=== PATIENT | male | born 1950 | race Caucasian/White ===

== ENCOUNTER 2022-04-08 06:48 | Day surgery (SDC) | payer MEDICARE, MEDICAID ==
[2022-04-08] VITALS (20 sets, daily range): BP systolic 122–169; BP diastolic 61–95
[~2022-04-08] VITALS: Ht 177.8 cm; Wt 112.6 kg
[~2022-04-08 06:48] MED LIST: ALBU0.63 NEB; ALBU18HF2 INH; DOCUMENT DATE & TIME OF BETA-BLOCKER PO ONE; ENAL-79 PO; FLO0.4C PO; FLUT1AER INH; HYDR-3972 PO; NIFE30TA95 PO; OMEG-167 PO; OMEP40CA21 PO; OMNICEF PO; P-EP-21 PO; PRED10TA23 PO; PROP20TA6 PO; famotidine 20mg tablet PO ONE; oxymetazoline 15 ML nasal spray NS ONE; ringers solution, lacted 1,000 ML IV SCH; tranexamic acid inj. 1,000 MG in normal saline IV soln 100ML IV ONE
[2022-04-08] MEDS ORDERED: cocaine 4% topical solution 4ml bottle ONE (07:17)
[2022-04-08] MEDS ORDERED: methylPREDNISolone acetate 80mg/ml inj**IM only ONE (07:17)
[2022-04-08] MEDS ORDERED: tranexamic acid 100mg/ml inj. ONE (07:17)
[2022-04-08] MEDS ORDERED: LIDOCAINE 1%/EPI 1:100,000 inj. 10 ML multi-dose vial ONE (07:18)
[2022-04-08] MEDS ORDERED: mupirocin 2% ointment 22GM ONE (07:18)
[2022-04-08] MEDS ORDERED: oxymetazoline 15 ML nasal spray NS ONE (07:18)
[2022-04-08] MEDS ORDERED: fentaNYL/PF 50MCG/1 ML 2ML syringe ONE ×2 (10:47→12:38)
[2022-04-08] MEDS ORDERED: morphine 2 MG/ML inj. syringe IV PRN (11:30)
[2022-04-08] MEDS ORDERED: ondansetron/PF 4mg/2ml inj IV PRN (11:30)
[2022-04-08] MEDS ORDERED: ringers solution, lacted 1,000 ML IV SCH (11:30)
[2022-04-08] MEDS ORDERED: morphine 4 MG/ML inj SYRINge IV PRN (11:30)
[2022-04-08] MEDS ORDERED: hydrALAZINE 20mg/ml inj. IV PRN (11:30)
[2022-04-08] MEDS ORDERED: HYDROmorphone/PF 0.2 MG/ML SYRINGE IV PRN ×2 (11:30)
[2022-04-08] MEDS ORDERED: labetalol 5mg/ml 20ml inj. IV PRN (11:30)
[2022-04-08] MEDS ORDERED: dexamethasone sod phosphate 4mg/ml inj. ONE (12:00)
[2022-04-08] MEDS ORDERED: LIDOcaine 2% (20mg/ml) 5ml vial ONE (12:00)
[2022-04-08] MEDS ORDERED: ondansetron/PF 4mg/2ml inj ONE (12:00)
[2022-04-08] MEDS ORDERED: propofol inj 20 ML IV ONE (12:00)
--- NOTE | 2022-04-08 13:24 | NUR ---
COTTONOIDS REMOVED PER ORDERS. DR PHILIP CAME TO SEE PATIENT, IS AWARE OF PT'S BP, INFORMED HIM THAT PRN HYDRALAZINE HAS BEEN GIVEN AND ANOTHER DOSE WILL BE GIVEN. DR PHILIP STATES PT WAS NOT HAVING ISSUES WITH BLEEDING AND THE COTTONOIDS WERE OK TO COME OUT AT THE 30MIN [place]. PT TOLERATED WELL. GAUZE WITH NASAL FUENTES PLACED. PT DENIES PAIN. WILL CONTINUE TO MONITOR.
[2022-04-08] MEDS ORDERED: salt irrigation nasal spray 45 ML SPRAY NS PRN (14:10)
[2022-04-08] MEDS ORDERED: HYDROcodone/acetaminophen 10/325mg tab PO ONE (14:50)
--- NOTE | 2022-04-08 15:13 | NUR ---
I HAVE REVIEWED D/C INSTRUCTIONS WITH PATIENT AND THEY HAVE VERBALIZED UNDERSTANDING OF INSTRUCTIONS. PATIENT D/C HOME WITH ALL BELONGINGS AND FAMILY GAVE TRANSPORT Addendum: 04/08/22 at 1526 by Shahida Mckeon RN, RN Amended: Links added.
== END 2022-04-08 15:13 | disposition home or self-care (01) ==
LOC: PAS 06:48 → EDSEX 10:15 → PAS 15:13
PROVIDERS: ATTEND Otolaryngology
DX: J32.9 Chronic sinusitis, unspecified (principal); J33.8 Other polyp of sinus; J34.3 Hypertrophy of nasal turbinates; J32.0 Chronic maxillary sinusitis; I10 Essential (primary) hypertension; K21.9 Gastro-esophageal reflux disease without esophagitis; Z79.899 Other long term (current) drug therapy; Z98.890 Other specified postprocedural states; Z20.822 Contact with and (suspected) exposure to COVID-19; Z86.010 Personal history of colon polyps; Z87.891 Personal history of nicotine dependence; Z95.5 Presence of coronary angioplasty implant and graft; Z72.89 Other problems related to lifestyle
CPT/HCPCS: 30999; 31256; 31257; 61782; 70486; 82948; 87070; 87075; 87077; 87635; 93005; A6402; C9250; C9803; J0360; J1040; J1100; J2270; J2405; J2704; J3010; J3490; J7030; J7040; J7120; Z7506; Z7508; Z7512; 88304; 88311; A4618; A6449; A7000